=== PATIENT | female | born 1990 | race Caucasian/White ===

== ENCOUNTER 2021-10-29 13:26 | Day surgery (SDC) | payer OTHER ==
[2021-10-29] MEDS ORDERED: Depo-Medrol 40 MG/ML IM ONE (13:27)
[2021-10-29] MEDS ORDERED: Decadron 4 MG INJ IV ONE (13:27)
[2021-10-29] MEDS ORDERED: Xylocaine 1% Vial 30 ML PF IJ ONE (13:27)
[2021-10-29] MEDS ORDERED: Sodium Chloride 0.9% 10 ML FLUSH Syringe IJ ONE (13:27)
--- NOTE | 2021-10-29 17:26 | XRAY ---
Indication: Bilateral piriformis injections. Intraoperative fluoroscopy provided for 24 seconds. 2 digital spot image submitted for interpretation demonstrates posterior needle tip projecting over the expected left and right piriformis muscles. Small amount of contrast injected for both needle tip placement. Correlate with intraoperative findings/report.
--- NOTE | 2021-10-29 17:28 | XRAY ---
Indication: Caudal SANDY. Intraoperative fluoroscopy provided for 30 seconds. 2 digital spot image submitted for interpretation demonstrates caudal needle tip projecting mid sacrum. Small amount of contrast injected for needle tip placement. Correlate with intraoperative findings/report.
--- NOTE | 2021-10-31 09:57 | XRAY ---
30 seconds fluoroscopy time in surgery for caudal SANDY.
--- NOTE | 2021-10-31 10:07 | XRAY ---
24 seconds fluoroscopy time in surgery for bilateral piriformis muscle injections.
== END 2021-10-29 16:07 | disposition home or self-care (01) ==
LOC: SDC-PAIN 13:26
PROVIDERS: ATTEND Psychiatry & Neurology Pain Medicine
DX: M54.16 Radiculopathy, lumbar region (principal); M79.18 Myalgia, other site; Z79.899 Other long term (current) drug therapy
CPT/HCPCS: 20552; 62323; 72100; 72202; 77002; 77003; 84703; J1030; J1100; J2001; Q9966